=== PATIENT | female | born 1985 | race Caucasian/White ===

== ENCOUNTER 2018-03-13 09:05 | Emergency (ER) | payer MEDICAID ==
[~2018-03-13] VITALS: Ht 162.6 cm; Wt 154.2 kg
[2018-03-13 09:07] VITALS: BP_SYST 156
[2018-03-13] MEDS ORDERED: methylPREDNISolone SOD SUCC/PF 62.5 MG/ML VIAL IM ONE (09:30)
[2018-03-13 10:11] VITALS: BP_SYST 143
== END 2018-03-13 10:10 | disposition home or self-care (01) ==
LOC: SED 09:05
DX: L50.9 Urticaria, unspecified (principal); R03.0 Elevated blood-pressure reading, without diagnosis of hypertension; J45.909 Unspecified asthma, uncomplicated
CPT/HCPCS: 96372; 99283; J2930

== ENCOUNTER 2018-03-13 14:45 | Emergency (ER) | payer MEDICAID ==
[2018-03-13 15:15] VITALS: BP_SYST 145
[2018-03-13] MEDS ORDERED: DIPHENHYDRAMINE INJ 50 MG/ML VIAL IVP ONE (15:30)
[2018-03-13] MEDS ORDERED: methylPREDNISolone SOD SUCC/PF 62.5 MG/ML VIAL IVP ONE (15:30)
[2018-03-13] MEDS ORDERED: EPINEPHrine 1 MG/ML AMP IM ONE (15:30)
[2018-03-13 16:54] VITALS: BP_SYST 140
== END 2018-03-13 16:55 | disposition home or self-care (01) ==
LOC: SED 14:45
DX: L50.9 Urticaria, unspecified (principal); R03.0 Elevated blood-pressure reading, without diagnosis of hypertension; J45.909 Unspecified asthma, uncomplicated
CPT/HCPCS: 96372; 96374; 96375; 99284; J0171; J1200; J2930

== ENCOUNTER 2018-04-07 14:28 | Emergency (ER) | payer MEDICAID ==
[~2018-04-07] VITALS: Ht 172.7 cm; Wt 136.1 kg
[2018-04-07 14:33] VITALS: BP_SYST 125
[2018-04-07 17:56] VITALS: BP_SYST 125
== END 2018-04-07 17:56 | disposition home or self-care (01) ==
LOC: SED 14:28
DX: S93.491A Sprain of other ligament of right ankle, initial encounter (principal); S93.601A Unspecified sprain of right foot, initial encounter; J45.909 Unspecified asthma, uncomplicated; W18.09XA Striking against other object with subsequent fall, initial encounter; Y93.01 Activity, walking, marching and hiking; Y92.89 Other specified places as the place of occurrence of the external cause; Y99.8 Other external cause status
CPT/HCPCS: 99284

== ENCOUNTER 2021-12-12 16:28 | Emergency (ER) | payer BC, MEDICAID ==
[~2021-12-12] VITALS: Ht 162.6 cm; Wt 174.6 kg
[2021-12-12 17:27] LABS: BASOPHILS % (AUTO) 0.4 % (0.0-2.0); EOSINOPHILS # (AUTO) 0.1 K/uL (0.0-0.4); EOSINOPHILS % (AUTO) 1.4 % (0.0-4.0); HEMATOCRIT 39.7 % (36-48); HEMOGLOBIN 12.9 g/dL (12.0-16.0); LYMPHOCYTES # (AUTO) 2.3 K/uL (1.0-5.5); LYMPHOCYTES % (AUTO) 23.1 % (20.5-51.5); MEAN CORPUSCULAR HEMOGLOBIN 28 pg (27-31); MEAN CORPUSCULAR HGB CONC 33 % (32-36); MEAN CORPUSCULAR VOLUME 85 fL (79.0-98.0); MONOCYTES # (AUTO) 0.5 K/uL (0.0-1.0); MONOCYTES % (AUTO) 5.4 % (1.7-9.3); NEUTROPHILS # (AUTO) 6.9 K/uL (1.8-7.7); NEUTROPHILS % (AUTO) 69.7 % (40.0-70.0); PLATELET COUNT (AUTO) 292 K/uL (130-430); RED BLOOD CELL COUNT(AUTO) 4.68 MIL/uL (4.2-6.2); RED CELL DISTRIBUTION WIDTH 14.9 % (9.0-15.0); WHITE BLOOD COUNT (AUTO) 9.9 K/uL (4.8-10.8)
[2021-12-12] MEDS ORDERED: IBUPROFEN 400 MG TABLET PO ONE (17:30)
[2021-12-12 17:43] LABS: CALCIUM 8.4 mg/dL (8.4-11.0); CREATININE 0.65 mg/dL (0.55-1.30); POTASSIUM 3.6 mmol/L (3.5-5.1)
[2021-12-12 17:52] LABS: ALBUMIN 3.4 g/dL (3.4-4.8); PHOSPHORUS 3.5 mg/dL (2.7-4.5); TOTAL BILIRUBIN 0.3 mg/dL (0.0-1.0)
[2021-12-12 18:45] VITALS: BP_SYST 112
== END 2021-12-12 18:45 | disposition home or self-care (01) ==
LOC: SED 16:28
DX: R20.2 Paresthesia of skin (principal); M79.601 Pain in right arm; M79.602 Pain in left arm; F41.9 Anxiety disorder, unspecified; E83.41 Hypermagnesemia; R03.0 Elevated blood-pressure reading, without diagnosis of hypertension; J45.909 Unspecified asthma, uncomplicated
CPT/HCPCS: 36415; 71045; 80053; 83735; 84100; 84484; 85025; 93005; 99285

== ENCOUNTER 2023-03-14 23:37 | Emergency (ER) | payer BC ==
[~2023-03-14] VITALS: Ht 162.6 cm; Wt 153.3 kg
[2023-03-15 00:33] VITALS: BP_SYST 142
[2023-03-15 03:51] VITALS: BP_SYST 142
== END 2023-03-15 03:36 | disposition home or self-care (01) ==
LOC: SED 23:37
DX: M25.571 Pain in right ankle and joints of right foot (principal); M25.562 Pain in left knee; J45.909 Unspecified asthma, uncomplicated; Z79.899 Other long term (current) drug therapy
CPT/HCPCS: 73564; 99284

== ENCOUNTER 2023-04-22 09:23 | Emergency (ER) | payer BC, OTHER ==
[~2023-04-22] VITALS: Ht 165.1 cm; Wt 86.2 kg
[2023-04-22 09:33] VITALS: BP_SYST 125; PULSE 77; RESP 18; TEMP 98; O2SAT 100
[2023-04-22] MEDS ORDERED: MORPHINE 4 MG INJ. 4 MG/ML VIAL IM ONE (09:45)
[2023-04-22] MEDS ORDERED: TRAM50TA2 PO (10:09)
[2023-04-22] MEDS ORDERED: IBUP-1971 PO (10:09)
[2023-04-22 13:52] VITALS: BP_SYST 125; PULSE 77; RESP 18; TEMP 98; O2SAT 100
[2023-04-23] MEDS ORDERED: PERC10 PO (09:17)
== END 2023-04-22 11:00 | disposition home or self-care (01) ==
LOC: SED 09:23
DX: S63.502A Unspecified sprain of left wrist, initial encounter (principal); J45.909 Unspecified asthma, uncomplicated; Z79.899 Other long term (current) drug therapy; W18.40XA Slipping, tripping and stumbling without falling, unspecified, initial encounter; Y93.89 Activity, other specified; Y92.89 Other specified places as the place of occurrence of the external cause; Y99.8 Other external cause status
CPT/HCPCS: 99283; 73110; 29125; 96372; J2270